=== PATIENT | female | born 1990 ===

== ENCOUNTER 2019-12-28 14:38 | Emergency (ER) | payer MEDICAID ==
--- NOTE | 2019-12-28 14:41 | EDM.PDOC ---
ED HPI GENERAL MEDICAL PROBLEM - General Chief Complaint: General Stated Complaint: DIZZINESS, LOW BP Time Seen by Provider: 12/28/19 14:40 Source of Information: Reports: Patient, Family (). 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 Note the patient was evaluated at [facility] emergency room in [place] on for evaluation of a complete SAB, which was confirmed by pelvic ultrasound in that facility at that time by her history. Since that time her vaginal bloody discharge has actually decreased with no history of soak pads, etc. Note , however, that the patient did pass a large blood clot at 13:50 hours with sudden onset severe dizziness and near syncope at that time. No history of fall , head injury, etc.. The patient denies any chest pain/pressure, heart flutter, orthopnea, diaphoresis, paresthesias, recent decreased exercise tolerance, or any other anginal-type symptoms. No recent history of abdominal pain, heartburn , nausea, diarrhea, melena, gross hematochezia, or any food intolerance, including fatty foods, etc. although 12/21 abdominal cramping since passage of the above blood clot. She denies any gross hematuria, colic, or other UTI symptoms. The patient also denies any recent fever, cough, wheezing, dyspnea, etc.. She did take 500 mg of Tylenol at 11 AM with repeat dose at noon and then 200 mg of ibuprofen shortly prior to arrival to this facility. Onset: Today, Sudden Onset Date: 12/28/19 Onset Time: 00:00 Duration: Intermittent, Improving Location: Reports: Pelvis. Denies: Head, Face, Neck, Chest, Abdomen, Back, Upper Extremity, Left, Upper Extremity, Right, Radiates to Quality: Reports: Same as Previous Episode, Other (Cramping) Severity: Moderate Improves with: Reports: None Worsens with: Reports: None Context: Reports: Other (As above). Denies: Sick Contact, Trauma Associated Symptoms: Reports: Syncope. 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 Denies: Hard of Hearing, Impaired Vision Cardiovascular History: Reports: None. Denies: Arrhythmia, Heart Murmur, Hypertension Respiratory History: Reports: None, Asthma, Bronchitis, Recurrent Gastrointestinal History: Reports: None. Denies: GERD, Jaundice Genitourinary History: Reports: None. Denies: Acute Renal Failure, Chronic Renal Insuffiency, Renal Calculus, STD HORTICULTURAL SPECIALTY GROWER History: Reports: . Denies: Dysfunctional Uterine Bleeding, Endometriosis : 2 Para: 1 LMP (Approximate): Other (See Below) Other HORTICULTURAL SPECIALTY GROWER History: SAB on 12/25/19 at approximately 67 weeks gestation. Musculoskeletal History: Reports: None. Denies: Arthritis, Back Pain, Chronic, Fracture, Neck Pain, Chronic, Osteoarthritis Neurological History: Reports: None. Denies: Head Trauma, Seizure Psychiatric History: Reports: None. Denies: Abuse, Victim of, ADD, ADHD, Addiction, Psych Hospitalization(s), Psychosis, PTSD, Suicide Attempt, Suicidal Ideation Endocrine/Metabolic History: Reports: None. Denies: Diabetes, Gestational, Diabetes, Type I, Diabetes, Type II, Diabetes Mellitus, Type 3c, Hypothyroidism , IDDM Hematologic History: Reports: Anemia. Denies: Blood Transfusion(s) Immunologic History: Reports: None. Denies: AIDS, HIV, SLE Oncologic (Cancer) History: Reports: None. Denies: Basal Cell Carcinoma, Breast , Cervix, Hodgkin's Lymphoma, Leukemia, Lymphoma, Malignant Melanoma, Non- Hodgkin's Lymphoma, Ovarian, Squamous Cell Carcinoma, Uterine Dermatologic History: Reports: None. Denies: Eczema, Psoriasis - Infectious Disease History Infectious Disease History: Reports: Chicken Pox. Denies: C-Difficile, Herpes, Measles, Meningitis, Mononucleosis, MRSA, Mumps, Pertussis (Whooping Cough), RSV , Rubella, Scarlet Fever, Shingles, TB, VRE - Past Surgical History Head Surgeries/Procedures: Reports: None HEENT Surgical History: Reports: Adenoidectomy, Oral Surgery, Tonsillectomy, Other (See Below). Denies: Detached Retina, Eye Surgery, Laser Surgery, LASIK, Myringotomy w Tube(s) Other HEENT Surgeries/Procedures: Tonsillectomy and adenoidectomy at about age 6. [place] teeth extraction X 4 at age 18 Cardiovascular Surgical History: Reports: None. Denies: Varicose Respiratory Surgical History: Reports: None GI Surgical History: Reports: None. Denies: Appendectomy, Cholecystectomy Female Surgical History: Reports: None. Denies: D&C, Tubal Ligation Endocrine Surgical History: Reports: None Neurological Surgical History: Reports: None. Denies: C-Spine, Discectomy, Laminectomy, Lumbar Spine, Spinal Fusion Musculoskeletal Surgical History: Reports: None. Denies: Carpal Tunnel, Ganglion Cyst, ORIF Oncologic Surgical History: Reports: None Dermatological Surgical History: Reports: None - Past Imaging History Past Imaging History: Reports: Ultrasound (OB ultrasounds) Social & Family History - Tobacco Use Smoking Status *Q: Never Smoker Tobacco Use Within Last Twelve Months: No Used Tobacco, but Quit: No Smoking Cessation Information Provided To Patient: No Second Hand Smoke Exposure: No Second Hand Smoke Education Provided: No - Caffeine Use Caffeine Use: Reports: None. Denies: Coffee, Energy Drinks, Soda, Tea - Alcohol Use Alcohol Use History: No Days Per Week of Alcohol Use: 0 Number of Drinks Per Day: 0 Number of Drinks Per Day Comment: No previous DWIs, problems with alcohol abuse , etc. 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 ED EXAM, GENERAL - Physical Exam Exam: See Below Exam Limited By: No Limitations General Appearance: Alert, WD/WN, No Apparent Distress Ears: Normal External Exam, Normal Canal, Hearing Grossly Normal, Normal TMs Nose: Normal Inspection, Normal Mucosa, No Blood Throat/Mouth: Normal Lips, Normal Teeth, Normal Gums, Normal Voice, No Airway Compromise. No: Normal Oropharynx (Mild oral mucosa), Dysphagia, Perioral Cyanosis Head: Atraumatic, Normocephalic Neck: Normal Inspection, Supple, Non-Tender, Full Range of Motion. No: Lymphadenopathy (L), Lymphadenopathy (R), Thyromegaly Respiratory/Chest: No Respiratory Distress, Lungs Clear, Normal Breath Sounds, No Accessory Muscle Use, Chest Non-Tender. No: Pleural Rub, Retractions Cardiovascular: Normal Peripheral Pulses, Regular Rate, Rhythm, No Edema, No Gallop, No JVD, No Murmur, No Rub. No: Gallop/S3, Gallop/S4, Friction Rub Peripheral Pulses: 2+: Radial (L), Radial (R), Dorsalis Pedis (L), Dorsalis Pedis (R) GI/Abdominal: Normal Bowel Sounds, Soft, Non-Tender, No Organomegaly, No Distention, No Abnormal Bruit, No Mass, Pelvis Stable. No: Guarding (Female) Exam: Deferred Rectal (Female) Exam: Deferred Back Exam: Normal Inspection, Full Range of Motion. No: CVA Tenderness (L), CVA Tenderness (R), Muscle Spasm Extremities: Normal Inspection, Normal Range of Motion, Non-Tender, No Pedal Edema, Normal Capillary Refill. No: Wade's Sign Neurological: Alert, Oriented, CN II-XII Intact, Normal Cognition, Normal Gait, Normal Reflexes, No Motor/Sensory Deficits, Other (No clinical orthostasis) Psychiatric: Normal Affect, Normal Mood Skin Exam: Warm, Dry, Intact, Normal Color, No Rash, Tattoo(s) (Multiple), Other (Good skin turgor). No: Diaphoretic, Wound/Incision Lymphatic: No Adenopathy Course - Vital Signs Last Recorded V/S: Last Vital Signs Temp 36.6 C 12/28/19 14:44 Pulse 88 12/28/19 15:55 Resp 20 12/28/19 15:55 BP 93/60 12/28/19 15:55 Pulse Ox 100 12/28/19 15:55 Vital Signs - 24 hr 12/28/19 12/28/19 12/28/19 14:44 14:55 15:30 Temperature [ 36.6 C Temporal] Pulse, 95 90 85 Peripheral [ Pulse Oximetry] Respiratory 20 14 20 Rate Blood Pressure 96/62 95/58 L 98/63 [Left Upper Arm ] O2 Sat by Pulse 100 100 99 Oximetry 12/28/19 15:55 Temperature [ Temporal] Pulse, 88 Peripheral [ Pulse Oximetry] Respiratory 20 Rate Blood Pressure 93/60 [Left Upper Arm ] O2 Sat by Pulse 100 Oximetry - Orders/Labs/Meds Orders: Active Orders 24 hr Category Date Time Status Cardiac Monitoring [RC] . DIRECTED Care 12/28/19 14:42 Active Oxygen Therapy, ED [RC] PRN Care 12/28/19 14:42 Active Peripheral IV Care [RC] . DIRECTED Care 12/28/19 14:42 Active Pulse Oximetry [RC] CONTINUOUS Care 12/28/19 14:42 Active Up With Assistance [RC] PFP Care 12/28/19 14:42 Active Vital Signs [RC] PFP Care 12/28/19 14:42 Active Obtain Past Medical Record [OM.PC] Urgent Oth 12/28/19 14:42 Active Peripheral IV Insertion Adult [OM.PC] Stat Oth 12/28/19 14:42 Ordered Resuscitation Status Stat Resus Stat 12/28/19 14:42 Ordered Labs: Laboratory Tests 12/28/19 12/28/19 12/28/19 Range/Units 14:58 14:58 14:58 WBC 12.1 H (4.0-10.2) K/uL RBC 4.49 (3.77-5.09) M/uL Hgb 12.8 (11.7-15.5) g/dL Hct 38.3 (34.0-46.0) % MCV 85.3 (84.0-98.0) fL MCH 28.5 (28.2-33.3) pg MCHC 33.4 (31.7-36.0) g/dL RDW 13.2 (11.2-14.1) % Plt Count 250 (150-350) K/uL Neut % (Auto) 80.8 H (45.0-80.0) % Lymph % (Auto) 13.4 (10.0-50.0) % [place] % (Auto) 4.1 (2.0-14.0) % Eos % (Auto) 1.5 (0.0-5.0) % Baso % (Auto) 0.2 (0.0-2.0) % Neut # (Auto) 9.78 H (1.40-7.00) K/uL Lymph # (Auto) 1.62 (0.50-3.50) K/uL [place] # (Auto) 0.50 (0.00-1.00) K/uL Eos # (Auto) 0.18 (0.00-0.50) K/uL Baso # (Auto) 0.02 (0.00-0.20) K/uL PT 9.6 (9.5-12.0) SEC INR 1.0 APTT 21.4 L (24.5-32.8) SEC D-Dimer, Quantitative 672 H (0-400) ng/mL Sodium (136-145) mmol/L Potassium (3.5-5.1) mmol/L Chloride (98-107) mmol/L Carbon Dioxide (21.0-32.0) mmol/L BUN (7-18) mg/dL Creatinine (0.51-1.17) mg/dL Est Cr Clr Drug Dosing Estimated GFR (MDRD) mL/min Glucose (74-106) mg/dL Lactic Acid (0.4-2.0) mmol/L Uric Acid (2.6-7.2) mg/dL Calcium (8.5-10.1) mg/dL Magnesium (1.8-2.4) mg/dL Total Bilirubin (0.2-1.0) mg/dL AST (15-37) U/L ALT (12-78) U/L Alkaline Phosphatase (46-116) IU/L Creatine Kinase (26-308) U/L Creatine Kinase Index (0.0-2.5) % CK-MB (CK-2) (0.00-3.60) ng/mL Troponin I (0.000-0.056) ng/mL NT-Pro-B Natriuret Pep (0-125) pg/mL Total Protein (6.4-8.2) g/dL Albumin (3.4-5.0) g/dL TSH, Ultra Sensitive (0.358-3.740) mIU/mL 12/28/19 12/28/19 Range/Units 14:58 14:58 WBC (4.0-10.2) K/uL RBC (3.77-5.09) M/uL Hgb (11.7-15.5) g/dL Hct (34.0-46.0) % MCV (84.0-98.0) fL MCH (28.2-33.3) pg MCHC (31.7-36.0) g/dL RDW (11.2-14.1) % Plt Count (150-350) K/uL Neut % (Auto) (45.0-80.0) % Lymph % (Auto) (10.0-50.0) % [place] % (Auto) (2.0-14.0) % Eos % (Auto) (0.0-5.0) % Baso % (Auto) (0.0-2.0) % Neut # (Auto) (1.40-7.00) K/uL Lymph # (Auto) (0.50-3.50) K/uL [place] # (Auto) (0.00-1.00) K/uL Eos # (Auto) (0.00-0.50) K/uL Baso # (Auto) (0.00-0.20) K/uL PT (9.5-12.0) SEC INR APTT (24.5-32.8) SEC D-Dimer, Quantitative (0-400) ng/mL Sodium 144 (136-145) mmol/L Potassium 3.3 L (3.5-5.1) mmol/L Chloride 107 (98-107) mmol/L Carbon Dioxide 27.1 (21.0-32.0) mmol/L BUN 18 (7-18) mg/dL Creatinine 0.56 (0.51-1.17) mg/dL Est Cr Clr Drug Dosing TNP Estimated GFR (MDRD) > 60 mL/min Glucose 138 H (74-106) mg/dL Lactic Acid 2.0 (0.4-2.0) mmol/L Uric Acid 0.1 L (2.6-7.2) mg/dL Calcium 9.0 (8.5-10.1) mg/dL Magnesium 1.7 L (1.8-2.4) mg/dL Total Bilirubin 0.4 (0.2-1.0) mg/dL AST 12 L (15-37) U/L ALT 17 (12-78) U/L Alkaline Phosphatase 50 (46-116) IU/L Creatine Kinase 46 (26-308) U/L Creatine Kinase Index 0.7 (0.0-2.5) % CK-MB (CK-2) 0.30 (0.00-3.60) ng/mL Troponin I 0.002 (0.000-0.056) ng/mL NT-Pro-B Natriuret Pep 32 (0-125) pg/mL Total Protein 7.9 (6.4-8.2) g/dL Albumin 3.5 (3.4-5.0) g/dL TSH, Ultra Sensitive 1.741 (0.358-3.740) mIU/mL Meds: Medications Discontinued Medications Generic Name Dose Route Start Last Admin Trade Name Freq PRN Reason Stop Dose Admin Famotidine 40 mg 12/28/19 14:42 Pepcid IVPUSH 12/28/19 14:43 ONETIME ONE Lactated Ringer's 1,000 mls @ 999 mls/hr 12/28/19 14:43 12/28/19 15:00 Ringers, Lactated IV 12/28/19 15:43 999 mls/hr .BOLUS ONE Administration Sodium Chloride 10 ml 12/28/19 14:42 Saline Flush FLUSH ASDIRECTED PRN Keep Vein Open - Radiology Interpretation Free Text/Narrative:: personnel monitor showed normal sinus rhythm in the 80s?90s with no ectopy or arrhythmia. Departure - Departure Time of Disposition: 16:35 Disposition: Home, Self-Care 01 Condition: Good Clinical Impression: Near syncope, SAB (spontaneous ), D-dimer, elevated, Dehydration, Hypokalemia - Discharge Information *PRESCRIPTION DRUG MONITORING PROGRAM REVIEWED*: Not Applicable *COPY OF PRESCRIPTION DRUG MONITORING REPORT IN PATIENT EMMY: Not Applicable Instructions: Near-Syncope, [id number], Dehydration, Adult, [id number], Rehydration, Adult Referrals: PCP,None [Ordering Only Provider] - Forms: ED Department Discharge Additional Instructions: 1. Follow-up with your regular provider tomorrow for reevaluation and recommended CBC, basic metabolic panel, INR, PTT, and d-dimer 2. Venous Doppler studies of your legs are to be conducted in this facility at 08:30 a.m. tomorrow morning with further workup depending on these results and your blood work test results as above. 3. Tylenol 650 mg by mouth every 4 hours and/or OTC ibuprofen 2-3 tabs by mouth every 6 hours with food as directed./needed. You may stagger these medications for 48-72 hours only, which essentially means that you are receiving a pain medication about every 2 hours. 4. Encourage oral fluids as discussed 5. Strict injury and fall precautions with strict no driving until released by your regular provider. 6. Immediately after this visit verify that your cellular telephone's voicemail has been activated and is empty. Also verify that your home telephone 's answering machine is operating properly and has space to receive messages. Note that it is sometimes necessary for us to be able to contact you at a later date to discuss your medical care. 7. Please remember that we are ALWAYS here for you and want to answer any questions you may have. Feel free to call the hospital any time and we call you back MARGARITA. Sepsis Event Note (ED) - Focused Exam Vital Signs: Vital Signs Temp Pulse Resp BP Pulse Ox 12/28/19 15:55 88 20 93/60 100 12/28/19 15:30 85 20 98/63 99 12/28/19 14:55 90 14 95/58 L 100 12/28/19 14:44 36.6 C 95 20 96/62 100 - Problem List & Annotations (1) Near syncope SNOMED Code(s): 389878300 Code(s): R55 - SYNCOPE AND COLLAPSE Status: Acute Priority: High Onset Date: 12/28/19 Annotation/Comment:: Likely secondary to dehydration as below. Note chronic hypotension with no clinical orthostasis during today's exam. Patient did feel much better after IV fluids as below. Continue close follow-up by regular provider. (2) Dehydration SNOMED Code(s): 59099732 Code(s): E86.0 - DEHYDRATION Status: Acute Priority: High Onset Date: 12/28/19 Annotation/Comment:: Symptoms likely secondary to mild dehydration with temperatures over 97F at this time. Patient has not been drinking much fluid despite her recent SAB. She did feel much better after 1 L lactated Ringer 's IV bolus. Activity restrictions discussed. Oral fluids are to be encouraged as per discharge instructions. (3) D-dimer, elevated SNOMED Code(s): 747463808 Code(s): R79.89 - OTHER SPECIFIED ABNORMAL FINDINGS OF BLOOD CHEMISTRY Status: Acute Priority: High Onset Date: 12/28/19 Annotation/Comment:: No clinical evidence of DVT or PE. D-dimer is less than 1000 with no indication for immediate CTA of the chest at this time based on current standards of care. Venous Doppler studies of the lower extremities will be conducted in this facility tomorrow with close follow-up by her regular provider as per discharge instructions. CTA of the chest depending on her clinical course. (4) SAB (spontaneous ) SNOMED Code(s): 57364928 Code(s): O03.9 - COMPLETE OR UNSP SPONTANEOUS WITHOUT COMPLICATION Status: Acute Priority: High Onset Date: 12/25/19 Annotation/Comment:: No significant vaginal bleeding despite recent SAB with negative pelvic ultrasound at [facility] ER as above. She did have an OB visit at [facility] in [place] earlier this morning with quantitative beta-hCG drawn with blood specimen already sent to [facility] in [place] and results are still pending. No anemia at this time with mild leukocytosis likely secondary to heat exposure and recent . No fever or evidence of infection. (5) Hypokalemia SNOMED Code(s): 86981266 Code(s): E87.6 - HYPOKALEMIA Status: Acute Priority: Medium Onset Date : 12/28/19 Annotation/Comment:: IV lactated Ringer's given as above. Sports drinks, etc. as above. Close follow-up by regular provider as per discharge instructions - Problem List Review Problem List Initiated/Reviewed/Updated: Yes - My Orders Last 24 Hours: My Active Orders 12/28/19 14:42 Cardiac Monitoring [RC] . DIRECTED Oxygen Therapy, ED [RC] PRN Peripheral IV Care [RC] . DIRECTED Pulse Oximetry [RC] CONTINUOUS Up With Assistance [RC] PFP Vital Signs [RC] PFP Obtain Past Medical Record [OM.PC] Urgent Peripheral IV Insertion Adult [OM.PC] Stat Resuscitation Status Stat - Assessment/Plan Last 24 Hours: My Active Orders 12/28/19 14:42 Cardiac Monitoring [RC] . DIRECTED Oxygen Therapy, ED [RC] PRN Peripheral IV Care [RC] . DIRECTED Pulse Oximetry [RC] CONTINUOUS Up With Assistance [RC] PFP Vital Signs [RC] PFP Obtain Past Medical Record [OM.PC] Urgent Peripheral IV Insertion Adult [OM.PC] Stat Resuscitation Status Stat Assessment:: As above Plan: As above. Extensive precautions were given to the patient and her , who are in agreement with the treatment plan. See Patient Instructions for further treatment and plan.
[2019-12-28] MEDS ORDERED: Sodium Chloride 0.9% 10 ML Syringe FLUSH PRN (14:42)
[2019-12-28] MEDS ORDERED: Famotidine 20 MG/2 ML SDV IVPUSH ONE (14:42)
[2019-12-28] MEDS: Lactated Ringers 1,000 ML IV ONE (15:00)
[2019-12-28 15:17] LABS: PTT,PARTIAL THROMBOPLSTIN TIME 21.4 SEC (24.5-32.8)
[2019-12-28 15:36] LABS: CHLORIDE,CL 107 mmol/L (98-107); SODIUM,NA 144 mmol/L (136-145)
== END 2019-12-28 16:35 | disposition home or self-care (01) ==
LOC: LL.ED 14:38
DX: O03.9 Complete or unspecified spontaneous abortion without complication (principal); E86.0 Dehydration; E87.6 Hypokalemia; R79.89 Other specified abnormal findings of blood chemistry
CPT/HCPCS: 36415; 80053; 82550; 82553; 83605; 83735; 83880; 84443; 84484; 84550; 85025; 85379; 85610; 85730; 96360; 99284-25; J7120

== ENCOUNTER 2020-04-13 16:28 | Emergency (ER) | payer MEDICAID ==
[2020-04-13] MEDS ORDERED: Ketorolac 60 MG/2 ML SDV IM ONE (17:32)
--- NOTE | 2020-04-13 17:34 | EDM.PDOC ---
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 Had a previous spontaneous termination which caused some dizziness/vasovagal symptoms but so far she has not experienced that here. No fevers/chills. Some cramping intermittently. Bloody fluid/products of conception has started to pass on own. No other acute changes. Has one 3 year old at home from previous . 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 Musculoskeletal History: Reports: None Neurological History: Reports: None Psychiatric History: Reports: None Endocrine/Metabolic History: Reports: None Hematologic History: Reports: Anemia Immunologic History: Reports: None Oncologic (Cancer) History: Reports: None Dermatologic History: Reports: None - Infectious Disease History Infectious Disease History: Reports: Chicken Pox - Past Surgical History Head Surgeries/Procedures: Reports: None HEENT Surgical History: Reports: Adenoidectomy, Oral Surgery, Tonsillectomy, Other (See Below) Other HEENT Surgeries/Procedures: Tonsillectomy and adenoidectomy at about age 6. [place] teeth extraction X 4 at age 18 Cardiovascular Surgical History: Reports: None Respiratory Surgical History: Reports: None GI Surgical History: Reports: None Female Surgical History: Reports: None Endocrine Surgical History: Reports: None Neurological Surgical History: Reports: None Musculoskeletal Surgical History: Reports: None Oncologic Surgical History: Reports: None Dermatological Surgical History: Reports: None - Past Imaging History Past Imaging History: Reports: Ultrasound (OB ultrasounds) Social & Family History - Caffeine Use Caffeine Use: Reports: None. 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 ED EXAM, GENERAL - Physical Exam Exam: See Below Exam Limited By: No Limitations General Appearance: Alert, WD/WN, No Apparent Distress Eye Exam: Bilateral Eye: Foreign Body, PERRL Ears: Hearing Grossly Normal Nose: No: Nasal Deformity, Nasal Swelling, Nasal Drainage Throat/Mouth: Normal Lips, Normal Voice, No Airway Compromise Head: Atraumatic, Normocephalic Neck: Supple, Full Range of Motion Respiratory/Chest: No Respiratory Distress, Lungs Clear, Normal Breath Sounds, No Accessory Muscle Use Cardiovascular: Regular Rate, Rhythm, No Murmur GI/Abdominal: Soft, Other (/no focal tenderness). No: Guarding, Rigid, Rebound (Female) Exam: Deferred Rectal (Female) Exam: Deferred Back Exam: No: CVA Tenderness (L), CVA Tenderness (R), Muscle Spasm Extremities: Normal Inspection, Normal Capillary Refill Neurological: Alert, Oriented, Normal Cognition, Normal Gait, No Motor/Sensory Deficits Psychiatric: Normal Affect, Normal Mood Skin Exam: Warm, Dry, Intact, Normal Color Course - Vital Signs Last Recorded V/S: Last Vital Signs Temp 36.9 C 04/13/20 17:00 Pulse 115 H 04/13/20 17:00 Resp 18 04/13/20 17:00 BP 118/67 04/13/20 17:00 Pulse Ox 100 04/13/20 17:00 - Orders/Labs/Meds Labs: Laboratory Tests 04/13/20 04/13/20 Range/Units 16:58 16:58 WBC 12.1 H (4.0-10.2) K/uL RBC 4.59 (3.77-5.09) M/uL Hgb 13.3 (11.7-15.5) g/dL Hct 38.9 (34.0-46.0) % MCV 84.7 (84.0-98.0) fL MCH 29.0 (28.2-33.3) pg MCHC 34.2 (31.7-36.0) g/dL RDW 13.4 (11.2-14.1) % Plt Count 253 (150-350) K/uL Neut % (Auto) 78.4 (45.0-80.0) % Lymph % (Auto) 13.6 (10.0-50.0) % [place] % (Auto) 5.6 (2.0-14.0) % Eos % (Auto) 2.2 (0.0-5.0) % Baso % (Auto) 0.2 (0.0-2.0) % Neut # (Auto) 9.51 H (1.40-7.00) K/uL Lymph # (Auto) 1.65 (0.50-3.50) K/uL [place] # (Auto) 0.68 (0.00-1.00) K/uL Eos # (Auto) 0.27 (0.00-0.50) K/uL Baso # (Auto) 0.02 (0.00-0.20) K/uL Sodium 136 (136-145) mmol/L Potassium 3.6 (3.5-5.1) mmol/L Chloride 102 (98-107) mmol/L Carbon Dioxide 27.9 (21.0-32.0) mmol/L BUN 11 (7-18) mg/dL Creatinine 0.62 (0.51-1.17) mg/dL Est Cr Clr Drug Dosing 115.61 mL/min Estimated GFR (MDRD) > 60 mL/min Glucose 101 (74-106) mg/dL Calcium 8.9 (8.5-10.1) mg/dL HCG, Quant 78867 mIU/mL Meds: Medications Discontinued Medications Generic Name Dose Route Start Last Admin Trade Name Freq PRN Reason Stop Dose Admin Ketorolac Tromethamine 60 mg 04/13/20 17:32 Toradol IM 04/13/20 17:33 ONETIME ONE - Re-Assessments/Exams Free Text/Narrative Re-Assessment/Exam: 04/13/20 17:35 Baseline HGB checked and normal level. Mild increased WBC/may be secondary to stress and anxiety. Mild tachycardia. Again, patient anxious and pacing floor. No further loss of products/fluid during ER stay. Abdomen soft/afebrile. Plan at this time is to observe for changes. Follow up as needed for recheck/repeat labs to monitor for significant blood loss. If she continues to not see much in the way of spontaneous clearance of products of conception, or if she develops fever or heavy bleeding, will plan on transfer to [place] for ObGyn eval and p ossible D&C Departure - Departure Time of Disposition: 17:32 Disposition: Home, Self-Care 01 Condition: Good Clinical Impression: SAB (spontaneous ) - Discharge Information *PRESCRIPTION DRUG MONITORING PROGRAM REVIEWED*: Not Applicable *COPY OF PRESCRIPTION DRUG MONITORING REPORT IN PATIENT EMMY: Not Applicable Instructions: Incomplete Miscarriage Referrals: Carmel Rutherford NP [Primary Care Provider] - Forms: ED Department Discharge Additional Instructions: Watch for changes. If you develop significant alexis bleeding/fever/worsening abdominal pain get rechecked as we discussed in the ER. Sepsis Event Note (ED) - Evaluation Sepsis Screening Result: No Definite Risk - Focused Exam Vital Signs: Vital Signs Temp Pulse Resp BP Pulse Ox 04/13/20 17:00 36.9 C 115 H 18 118/67 100
[2020-04-13 17:38] LABS: CHLORIDE,CL 102 mmol/L (98-107); SODIUM,NA 136 mmol/L (136-145)
== END 2020-04-13 18:00 | disposition home or self-care (01) ==
LOC: LL.ED 16:28
DX: O03.9 Complete or unspecified spontaneous abortion without complication (principal); J45.909 Unspecified asthma, uncomplicated; Z88.5 Allergy status to narcotic agent
CPT/HCPCS: 36415; 80048; 84702; 85025; 96372; 99283; 99284; J1885

== ENCOUNTER 2020-04-23 19:23 | Emergency (ER) | payer MEDICAID ==
[2020-04-23] MEDS ORDERED: LORazepam 2 MG/ML SDV IVPUSH ONE (19:40)
[2020-04-23] MEDS ORDERED: Sodium Chloride 0.9% 1,000 ML IV ONE (19:40)
--- NOTE | 2020-04-23 19:53 | EDM.PDOC ---
ED HPI GENERAL MEDICAL PROBLEM - General Chief Complaint: General Stated Complaint: dizziness, SOB Time Seen by Provider: 04/23/20 19:39 Source of Information: Reports: Patient History Limitations: Reports: No Limitations - History of Present Illness INITIAL COMMENTS - FREE TEXT/NARRATIVE: Patient comes to ER complaining of feeling dehydrated. Reports she is under a lot of stress. Recent miscarriage and now needs to move due to eviction notice. Has two year old at home. Hx of anxiety and panic attacks but has not had one in years. Was planning on picking up some Xanax tomorrow that was prescribed by her primary provider. Decided to come in when she felt a bit lightheaded. Also mild SOB. Has history of asthma. She thinks symptoms are due to stress and dehydration, but wanted to be checked out. No other complaints/acute changes reported. 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 Musculoskeletal History: Reports: None Neurological History: Reports: None Psychiatric History: Reports: Anxiety, Panic Attack Endocrine/Metabolic History: Reports: None Hematologic History: Reports: Anemia Immunologic History: Reports: None Oncologic (Cancer) History: Reports: None Dermatologic History: Reports: None - Infectious Disease History Infectious Disease History: Reports: Chicken Pox - Past Surgical History Head Surgeries/Procedures: Reports: None HEENT Surgical History: Reports: Adenoidectomy, Oral Surgery, Tonsillectomy, Other (See Below) Other HEENT Surgeries/Procedures: Tonsillectomy and adenoidectomy at about age 6. [place] teeth extraction X 4 at age 18 Cardiovascular Surgical History: Reports: None Respiratory Surgical History: Reports: None GI Surgical History: Reports: None Female Surgical History: Reports: None Endocrine Surgical History: Reports: None Neurological Surgical History: Reports: None Musculoskeletal Surgical History: Reports: None Oncologic Surgical History: Reports: None Dermatological Surgical History: Reports: None - Past Imaging History Past Imaging History: Reports: Ultrasound (OB ultrasounds) Social & Family History - Tobacco Use Smoking Status *Q: Never Smoker - Caffeine Use Caffeine Use: Reports: None. 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 Denies: Wheezing, Pleuritic Chest Pain, Cough, Sputum, Hemoptysis Cardiovascular: Reports: Lightheadedness. Denies: Chest Pain, Dyspnea on Exertion, Palpitations, Syncope GI/Abdominal: Reports: No Symptoms : Reports: No Symptoms Musculoskeletal: Reports: No Symptoms Skin: Reports: No Symptoms Neurological: Reports: Dizziness. Denies: Headache, Paresthesia, Tingling, Weakness, Change in Speech, Gait Disturbance Psychiatric: Reports: Anxiety. Denies: Depression, Homicidal Ideation, Suicidal Ideation Hematologic/Lymphatic: Reports: No Symptoms Immunologic: Reports: No Symptoms ED EXAM, GENERAL - Physical Exam Exam: See Below Exam Limited By: No Limitations General Appearance: Alert, WD/WN, No Apparent Distress Eye Exam: Bilateral Eye: EOMI, PERRL Ears: Normal External Exam, Hearing Grossly Normal Nose: No: Nasal Deformity, Nasal Swelling, Nasal Drainage Throat/Mouth: Normal Lips, Normal Voice, No Airway Compromise Head: Atraumatic, Normocephalic Neck: Normal Inspection, Supple, Non-Tender, Full Range of Motion. No: Lymphadenopathy (L), Lymphadenopathy (R) Respiratory/Chest: No Respiratory Distress, Lungs Clear, Normal Breath Sounds, No Accessory Muscle Use Cardiovascular: Regular Rate, Rhythm, No Edema, No Murmur GI/Abdominal: Normal Bowel Sounds, Soft, Non-Tender (Female) Exam: Deferred Rectal (Female) Exam: Deferred Back Exam: No: CVA Tenderness (L), CVA Tenderness (R), Muscle Spasm Extremities: Normal Range of Motion, Non-Tender, No Pedal Edema, Slow Capillary Refill (3 sec). No: Increased Warmth, Mottled, Pallor, Redness Neurological: Alert, Oriented, Normal Cognition, Normal Gait, No Motor/Sensory Deficits Psychiatric: Normal Affect, Normal Mood Skin Exam: Warm, Dry, Intact, Normal Color Course - Vital Signs Last Recorded V/S: Last Vital Signs Temp 36.4 C 04/23/20 19:24 Pulse 95 04/23/20 19:24 Resp 14 04/23/20 19:24 BP 99/77 04/23/20 19:24 Pulse Ox 100 04/23/20 19:24 - Orders/Labs/Meds Orders: Active Orders 24 hr Category Date Time Status Chest 2V [CR] Stat Exams 04/23/20 19:40 Taken UA W/MICROSCOPIC [URIN] Stat Lab 04/23/20 19:39 Ordered Labs: Laboratory Tests 04/23/20 04/23/20 04/23/20 Range/Units 19:45 19:45 19:45 WBC 8.8 (4.0-10.2) K/uL RBC 4.63 (3.77-5.09) M/uL Hgb 13.3 (11.7-15.5) g/dL Hct 39.2 (34.0-46.0) % MCV 84.7 (84.0-98.0) fL MCH 28.7 (28.2-33.3) pg MCHC 33.9 (31.7-36.0) g/dL RDW 13.2 (11.2-14.1) % Plt Count 298 (150-350) K/uL Neut % (Auto) 64.7 (45.0-80.0) % Lymph % (Auto) 26.1 (10.0-50.0) % [place] % (Auto) 5.2 (2.0-14.0) % Eos % (Auto) 3.8 (0.0-5.0) % Baso % (Auto) 0.2 (0.0-2.0) % Neut # (Auto) 5.69 (1.40-7.00) K/uL Lymph # (Auto) 2.29 (0.50-3.50) K/uL [place] # (Auto) 0.46 (0.00-1.00) K/uL Eos # (Auto) 0.33 (0.00-0.50) K/uL Baso # (Auto) 0.02 (0.00-0.20) K/uL D-Dimer, Quantitative 100 (0-400) ng/mL Sodium 138 (136-145) mmol/L Potassium 3.4 L (3.5-5.1) mmol/L Chloride 102 (98-107) mmol/L Carbon Dioxide 28.4 (21.0-32.0) mmol/L BUN 12 (7-18) mg/dL Creatinine 0.60 (0.51-1.17) mg/dL Est Cr Clr Drug Dosing 104.40 mL/min Estimated GFR (MDRD) > 60 mL/min Glucose 87 (74-106) mg/dL Calcium 8.8 (8.5-10.1) mg/dL Magnesium 1.8 (1.8-2.4) mg/dL Total Bilirubin 0.3 (0.2-1.0) mg/dL AST 12 L (15-37) U/L ALT 21 (12-78) U/L Alkaline Phosphatase 53 (46-116) IU/L Total Protein 7.9 (6.4-8.2) g/dL Albumin 3.6 (3.4-5.0) g/dL Meds: Medications Discontinued Medications Generic Name Dose Route Start Last Admin Trade Name Freq PRN Reason Stop Dose Admin Sodium Chloride 1,000 mls @ 999 mls/hr 04/23/20 19:40 04/23/20 19:55 Normal Saline IV 04/23/20 20:40 999 mls/hr .BOLUS ONE Administration Lorazepam 0.5 mg 04/23/20 19:40 04/23/20 19:55 Ativan IVPUSH 04/23/20 19:41 0.5 mg ONETIME ONE Administration - Re-Assessments/Exams Free Text/Narrative Re-Assessment/Exam: 04/23/20 19:59 Mild dehydration based on exam and history. Will give IV fluids. CBC/Chem/Mg/Ddimer ordered. Chest xray ordered. 04/23/20 20:03 Chest xray appears clear although small nodule noted right lower lung. Pending formal radiology review. Labs unremarkable. 21:00 Patient feeling improved after IV fluids/discharged home. Suspect anxiety/stress along with mild dehydration. Follow up PRN Departure - Departure Time of Disposition: 21:00 Disposition: Home, Self-Care 01 Condition: Good Clinical Impression: Anxiety, Mild dehydration - Discharge Information *PRESCRIPTION DRUG MONITORING PROGRAM REVIEWED*: Not Applicable *COPY OF PRESCRIPTION DRUG MONITORING REPORT IN PATIENT EMMY: Not Applicable Instructions: Hypokalemia Referrals: Carmel Rutherford WEB PROGRAMMER [Primary Care Provider] - Forms: ED Department Discharge Additional Instructions: Follow up with [facility] and have US study scheduled. Follow up otherwise as needed for worsening problems/symptoms. Sepsis Event Note (ED) - Evaluation Sepsis Screening Result: No Definite Risk - Focused Exam Vital Signs: Vital Signs Temp Pulse Resp BP Pulse Ox 04/23/20 19:24 36.4 C 95 14 99/77 100 - My Orders Last 24 Hours: My Active Orders 04/23/20 19:39 UA W/MICROSCOPIC [URIN] Stat 04/23/20 19:40 Chest 2V [CR] Stat - Assessment/Plan Last 24 Hours: My Active Orders 04/23/20 19:39 UA W/MICROSCOPIC [URIN] Stat 04/23/20 19:40 Chest 2V [CR] Stat
[2020-04-23 20:07] LABS: CHLORIDE,CL 102 mmol/L (98-107); SODIUM,NA 138 mmol/L (136-145)
== END 2020-04-23 21:15 | disposition home or self-care (01) ==
LOC: LL.ED 19:23
DX: E86.0 Dehydration (principal); F41.9 Anxiety disorder, unspecified; J45.909 Unspecified asthma, uncomplicated; Z88.5 Allergy status to narcotic agent
CPT/HCPCS: 36415; 71046; 80053; 83735; 85025; 85379; 96361; 96374; 99285; J2060; J7030